=== PATIENT | female | born 1945 | race Caucasian/White ===

== ENCOUNTER 2024-08-06 09:14 | Inpatient (IN) ==
--- NOTE | 2024-08-06 09:22 | EKG ---
Test Reason : chest pain Blood Pressure : */* mmHG Vent. Rate : 72 BPM Atrial Rate : * BPM P-R Int : * ms QRS Dur : 74 ms QT Int : 362 ms P-R-T Axes : * -3 26 degrees QTc Int : 396 ms some sinus rhythm/some junctional - occ pacs Nonspecific ST and T wave abnormality Abnormal ECG No previous ECGs available Confirmed by Mook Gary MD ([id number]) on 08/06/2024 1:09:55 PM Referred By: Confirmed By: Mook Gary MD
[2024-08-06 09:26] LABS: ABG BASE EXCESS 0.8 mmol/L (-2.0-2.0); ABG HCO3 26.0 mmol/L (22-26); ABG OXYGEN SATURATION 88.0 % (90-100); ABG PCO2 43.0 mmHg (35.0-45.0); ABG PH 7.390 (7.35-7.45); ABG PO2 56.0 mmHg (80.0-100.0)
[2024-08-06 09:27] LABS: ABG ALLEN TEST POS
--- NOTE | 2024-08-06 09:34 | DR.CP ---
HPI Time Seen Time Seen by Provider: 08/06/24 09:26 HPI Comment HPI Comment: History as below. Complaint Chief Complaint Doctor Comments: Patient is 7oyr old female in ER with chest pain, SOB and fever times 3 days and is getting worse. Patient said pain is in right chest radiating to the back and right arm. Patient said symptoms are worse today. COVID-19 Coronavirus risk:travel/contact w/high risk person: No Has patient experienced Coronavirus symptoms: Yes Coronavirus symptoms experienced: Fever and Shortness of Breath Reviewed Nurses Notes Review: Yes PMH Travel Risk Coronavirus risk:travel/contact w/high risk person: No Has patient experienced Coronavirus symptoms: Yes Coronavirus symptoms experienced: Fever and Shortness of Breath ROS Review of Systems Constitutional: See HPI and Fever Eyes: No Symptoms Reported and See HPI ENTM: See HPI and Nose Congestion; negative Nose Discharge Respiratoy: See HPI, Moist Cough and Short of Breath; negative Wheezing Cardiovascular: See HPI and Chest Pain Gastrointestinal/Abdominal: No Symptoms Reported; negative Abdominal Pain, Diarrhea or Vomiting Genitourinary: No Symptoms Reported; negative Dysuria Neurological: No Symptoms Reported; negative Headache or Dizziness Musculoskeletal: See HPI, Joint Pain and Muscle Pain Integumentary: No Symptoms Reported and See HPI; negative Rash Hematologic/Lymphatic: No Symptoms Reported, See HPI and Easy Bruising Endocrine: No Symptoms Reported and See HPI Psychiatric: No Symptoms Reported and See HPI All Other Systems: Reviewed and Negative PE Vitals Vitals: Vital Signs Temperature 99.1 F Pulse Rate 60 Pulse Rate 69 Pulse Rate 74 Pulse Rate 85 Pulse Rate 72 Pulse Rate 92 Pulse Rate 64 Pulse Rate 61 Pulse Rate 89 Pulse Rate 95 Pulse Rate 82 Pulse Rate 65 Pulse Rate 62 Pulse Rate 65 Pulse Rate 67 Pulse Rate 82 Pulse Rate 77 Respiratory Rate 40 Respiratory Rate 40 Respiratory Rate 41 Respiratory Rate 37 Respiratory Rate 45 Respiratory Rate 42 Respiratory Rate 40 Respiratory Rate 35 Respiratory Rate 30 Respiratory Rate 45 Respiratory Rate 41 Respiratory Rate 33 Respiratory Rate 43 Respiratory Rate 43 Respiratory Rate 36 Blood Pressure 121/57 Blood Pressure 117/56 Blood Pressure 137/60 Blood Pressure 136/60 Blood Pressure 119/56 Blood Pressure 119/56 Blood Pressure 119/56 Blood Pressure 156/119 Blood Pressure 127/67 Blood Pressure 124/59 O2 Sat by Pulse Oximetry 100 O2 Sat by Pulse Oximetry 98 O2 Sat by Pulse Oximetry 94 O2 Sat by Pulse Oximetry 94 O2 Sat by Pulse Oximetry 94 O2 Sat by Pulse Oximetry 86 O2 Sat by Pulse Oximetry 96 O2 Sat by Pulse Oximetry 95 O2 Sat by Pulse Oximetry 95 O2 Sat by Pulse Oximetry 94 O2 Sat by Pulse Oximetry 95 O2 Sat by Pulse Oximetry 97 O2 Sat by Pulse Oximetry 97 O2 Sat by Pulse Oximetry 96 O2 Sat by Pulse Oximetry 97 O2 Sat by Pulse Oximetry 86 O2 Sat by Pulse Oximetry 89 General Limitations: No Limitations General Appearance: In Distress Head Head Exam: Normal Inspection Eyes Eye exam: Normal Appearance; negative Scleral Icterus or Conjunctival Injection ENT ENT Exam: Normal Exam, Normal Oropharynx, Normal External Ear Exam and TM's Normal Bilaterally Chest Chest Inspection: Normal Inspection and Symmetric Chest Wall Rise; negative Tenderness Respiratory Respiratory Exam: Normal Lung Sounds Bilat; negative Accessory Muscle Use, Chest Wall Tenderness or Respiratory Distress Respiratory Exam: Bilateral: Rhonchi Cardiovascular Cardiovascular Exam: Regular Rate, Normal Rhythm and Normal Heart Sounds; negative Systolic Murmur or Diastolic Murmur Abdominal Exam Abdominal Exam: Normal Inspection, Normal Bowel Sounds and Soft; negative Tenderness Extremities Extremities Exam: Tenderness (right shoulder tenderness.) and Normal Capillary Refill Back Back Exam: Normal Inspection; negative (R) CVA Tenderness or (L) CVA Tenderness Neurologic Neurological Exam: Alert and Oriented X3; negative Motor Sensory Deficit Psychiatric Psychiatric Exam: Normal Affect and Normal Mood Skin Skin Exam: Warm and Intact COURSE Treatment Treatment: SEE ORDERS DONE WHILE PATIENT PT WAS IN ER. LABS, X-RAY AND CT DISCUSSED. PATIENT ADMITTED TO HOSPITAL FOR FURTHER MANAGEMENT. Consultation Consultation Comments: Discussed patient with Dr. Burgos. He will admit patient. Education/Counseling Education/Counseling: Patient Educated On: Treatment and Diagnosis ROR Labs Reviewed Laboratory Results Reviewed?: Yes 08/07/24 04:41 08/07/24 04:41 Laboratory: WBC 15.0 X10^3/uL (3.6-10.0) H 08/06/24 09:26 RBC 3.87 X10^6/uL (3.5-5.4) 08/06/24 09:26 Hgb 10.9 g/dL (12.0-16.0) L 08/06/24 09:26 Hct 33.1 % (36.0-47.0) L 08/06/24 09:26 MCV 85.4 fL (80.0-100.0) 08/06/24 09:26 MCH 28.1 pg (27.0-34.0) 08/06/24 09: MCHC 32.9 g/dL (33.0-35.0) L 08/06/24 09: RDW 13.8 % (11.6-16.5) 08/06/24 09: Plt Count 185 X10^3/uL (150.0-450.0) 08/06/24 09: MPV 7.8 fL (7.4-11.0) 08/06/24 09: Neut % (Auto) 78.5 % (42.0-75.0) H 08/06/24 09: Lymph % (Auto) 10.5 % (21.0-51.0) L 08/06/24 09: [place] % (Auto) 9.9 % (0.0-13.0) 08/06/24 09: Eos % (Auto) 0.8 % (0.9-2.9) L 08/06/24 09: Baso % (Auto) 0.3 % (0.2-1.0) 08/06/24 09: Neut # (Auto) 11.8 x10^3/uL (2.2-4.8) H 08/06/24 09:26 Lymph # (Auto) 1.6 X10^3/uL (1.3-2.9) 08/06/24 09:26 [place] # (Auto) 1.5 x10^3/uL (0.3-0.8) H 08/06/24 09: Eos # (Auto) 0.1 x10^3/uL (0.0-0.2) 08/06/24 09: Baso # (Auto) 0.0 X10^3/uL (0.0-0.1) 08/06/24 09: Absolute Nucleated RBC 0.0 /100WBC 08/06/24: PT 15.7 SECONDS (11.8-14.3) 08/06/24 09: INR Target Range - 08/06/24: INR 1.24 (0.8-1.3) 08/06/24 09: APTT 28.8 SECONDS (22.9-36.5) 08/06/24 09:26 PTT Comment - 08/06/24 09:26 D-Dimer 15.04 ug/ml (0.0-0.57) H 08/06/24 09:26 Sample Site Rrad 08/06/24 09:22 ABG pH 7.390 (7.35-7.45) 08/06/24 09:22 ABG pCO2 43.0 mmHg (35.0-45.0) 08/06/24 09:22 ABG pO2 56.0 mmHg (80.0-100.0) L 08/06/24 09:22 ABG HCO3 26.0 mmol/L (22-26) 08/06/24 09:22 ABG O2 Saturation 88.0 % (90-100) L 08/06/24 09:22 ABG Base Excess 0.8 mmol/L (-2.0-2.0) 08/06/24 09:22 Darrick Test Pos 08/06/24 09:22 A-a Gradient 40.0 mmHg 08/06/24 09:22 FiO2 21.0 08/06/24 09:22 Blood Gas Comments Shelia well ms 08/06/24 09:22 Sodium 138 mmol/L (136-145) 08/06/24 09:26 Corrected Sodium 139 mmol/L (136-145) 08/06/24 09:26 Potassium 4.0 mmol/L (3.5-5.1) 08/06/24 09:26 Chloride 102 mmol/L (98-107) 08/06/24 09:26 Carbon Dioxide 26.7 mmol/L (21-32) 08/06/24 09:26 BUN 13 mg/dL (7-18) 08/06/24 09:26 Creatinine 0.78 mg/dL (0.55-1.02) 08/06/24 09:26 Est GFR (MDRD) Af Amer > 60 (>60) 08/06/24 09:26 Est GFR (MDRD) Non-Af > 60 (>60) 08/06/24 09:26 Glucose 151 mg/dL (65-99) H 08/06/24 09:26 Lactic Acid 1.9 mmol/L (0.4-2.0) 08/06/24 09:26 Calcium 9.3 mg/dL (8.5-10.1) 08/06/24 09:26 Corrected Calcium 10.2 mg/dL (8.5-10.1) H 08/06/24 09:26 Magnesium 2.0 mg/dL (2.0-2.9) 08/06/24 09:26 Total Bilirubin 0.50 mg/dL (0.2-1.0) 08/06/24 09:26 AST 26 Units/L (15-37) 08/06/24 09:26 ALT 22 Units/L (12-78) 08/06/24 09:26 Alkaline Phosphatase 52 Units/L (46-116) 08/06/24 09:26 Creatine Kinase 53 Units/L (26-192) 08/06/24 09:26 Troponin I High Sens 73.4 ng/L (4.0-60.0) H* 08/06/24 12:11 B-Natriuretic Peptide 144 pg/mL (0-79) H 08/06/24 09:26 Total Protein 9.3 g/dL (6.4-8.2) H 08/06/24 09:26 Albumin 2.9 g/dL (3.4-5.0) L 08/06/24 09:26 Globulin 6.4 g/dL (2.5-4.5) H 08/06/24 09:26 Albumin/Globulin Ratio 0.5 Ratio (1.1-2.1) L 08/06/24 09:26 Specimen Type Clean catch urine 08/06/24 10:16 Urine Color Yellow (YELLOW) 08/06/24 10:16 Urine Appearance Clear (CLEAR) 08/06/24 10:16 Urine pH 5.0 (5.0 - 8.0) 08/06/24 10:16 Ur Specific Shepherd 1.020 (1.000-1.030) 08/06/24 10:16 Urine Protein 2+ (NEGATIVE) 08/06/24 10:16 Urine Glucose (UA) Negative (NEGATIVE) 08/06/24 10:16 Urine Ketones Negative (NEGATIVE) 08/06/24 10:16 Urine Blood 5+ (NEGATIVE) 08/06/24 10:16 Urine Nitrite Negative (NEGATIVE) 08/06/24 10:16 Urine Bilirubin Negative (NEGATIVE) 08/06/24 10:16 Urine Urobilinogen 1+ (NORMAL) 08/06/24 10:16 Ur Leukocyte Esterase Negative (NEGATIVE) 08/06/24 10:16 Urine RBC 5-10 /HPF (0-3) A 08/06/24 10:16 Urine WBC 0-2 /HPF (0-5) 08/06/24 10:16 Ur Squamous Epith Cells Rare /HPF (NEGATIVE) 08/06/24 10:16 Amorphous Sediment 1+ /HPF (NEGATIVE) 08/06/24 10:16 Urine Bacteria Negative /HPF (NEGATIVE) 08/06/24 10:16 Granular Casts Rare /LPF (NEGATIVE) 08/06/24 10:16 Urine Mucus Few /HPF (NEGATIVE) 08/06/24 10:16 Ur Culture Indicated? No/not indicated 08/06/24 10:16 XRAY XRAY Interpreted by: Radiologist (Report noted.) and Self Opioid Opioid Risk Tool Age (Velasquez box if 16-45): No History of Preadolescent Sexual Abuse: No Total: 0 Total Score Risk Category: Low Risk Copyright: Price WONG predicting aberrant behaviors Discharge Plan Diagnosis Discharge Problem: Hypoxia, Pleural effusion, right, New onset a-fib, Elevated troponin Acute pulmonary embolus Qualifiers: Pulmonary embolism type: other Acute cor pulmonale presence: unspecified Q ualified Code(s): I26.99 - Other pulmonary embolism without acute cor pulmonale Pneumonia Qualifiers: Pneumonia type: due to unspecified organism Laterality: right Lung location: u nspecified part of lung Qualified Code(s): J18.9 - Pneumonia, unspecified organism Discharge Plan Patient Disposition: ADMITTED INPATIENT Condition: Stable
[2024-08-06 09:54] LABS: MEAN PLATELET VOLUME 7.8 fL (7.4-11.0); RED CELL DISTRIBUTION WIDTH 13.8 % (11.6-16.5)
[2024-08-06 10:03] LABS: INR 1.24 (0.8-1.3)
[2024-08-06 10:12] LABS: COR CA(FOR HYPOALB) 10.2 mg/dL (8.5-10.1); COR NA(FOR HYPERGLY) 139 mmol/L (136-145); CREATININE 0.78 mg/dL (0.55-1.02); eGFR NON BLACK RACES > 60 (>60)
[2024-08-06] MEDS: ZOSYN VIAL 3.375 GRAMS 3.375 G in NS 100 ML IV 100 ML IV ONE (10:39)
[2024-08-06 10:48] LABS: BLOOD/HEMOGLOBIN,URINE 5+ (NEGATIVE); LEUKOCYTE ESTERASE ,URINE NEGATIVE (NEGATIVE); NITRITES,URINE NEGATIVE (NEGATIVE)
[2024-08-06 10:49] LABS: APPEARANCE,URINE CLEAR (CLEAR)
[2024-08-06 11:19] LABS: SQUAMOUS EPITHELIAL CELL,UR RARE /HPF (NEGATIVE)
--- NOTE | 2024-08-06 11:50 | CT ---
EXAMINATION: CTA, CHEST HISTORY: hypoxia; . COMPARISON: None. TECHNIQUE: Routine axial imaging of the chest was performed. CT angiography of the pulmonary arteries was performed with maximum intensity projection images and volume rendered images on a workstation.. The above CT scan was done with automated exposure control and the mA and kV was adjusted to obtain quality images according to patient size. FINDINGS: Lungs: There is apical scarring. There is minimal ground-glass opacity in the right apex. There are scattered patchy areas of atelectasis. Atelectasis in the right lower lobe. No acute infiltrates, suspicious pulmonary nodules, interstitial changes. 2 mm nodule in the right upper lobe. Central Airways: No obstructing endobronchial lesion Pleura: Small pleural effusion on the right. No left effusion. No pneumothorax Thoracic Aorta: Ectasia. Atherosclerotic calcification. No dissection. Main Pulmonary Trunk: Normal diameter. There is pulmonary embolus in segmental and subsegmental branches to the right middle lobe, right lower lobe, lingula and left lower lobe. No saddle embolus or evidence for right heart strain Lymph Nodes: No pathologic lymphadenopathy Heart/Pericardium: Normal heart size. No significant pericardial effusion. Coronary artery calcification in the LAD. Liver: No acute findings. Nodular liver which may represent cirrhosis. GB/Biliary: Cholecystectomy. No dilated ducts Spleen: Normal size and density Pancreas: No acute findings as visualized Adrenal Glands: No mass Kidneys no hydronephrosis. Abdominal Aorta: Tapers and enhances normally Retroperitoneum: No pathologically enlarged lymph nodes Bowel/Peritoneal Cavity: No acute findings as visualized Osseous Structures: Degenerative changes in the thoracolumbar spine. No acute findings or bony lesions. Other: None IMPRESSION: Acute pulmonary embolus in segmental and subsegmental branches to the right middle lobe, right lower lobe, lingula and left lower lobe. No CTA evidence for saddle embolus or right heart strain Small right effusion. Scattered patchy areas of atelectasis. Minimal ground-glass opacity in the right apex. Follow-up recommended. The above CT scan was done with automated exposure control and the mA and kV was adjusted to obtain quality images according to patient size THIS IS AN ELECTRONICALLY VERIFIED FINAL REPORT 08/06/2024 11:46 AM - Electronically signed by Keith Grayson MD
[2024-08-06] MEDS: ELIQUIS PO ONE (12:58)
[2024-08-06] MEDS: LASIX IVP SCH (13:49)
[2024-08-06 15:42] VITALS: BMI 27.8
[2024-08-06] MEDS ORDERED: TYLENOL 325 MG TAB PO PRN (16:18)
[2024-08-06] MEDS: XOPENEX 1.25 MG/3 ML NEBULE NEB SCH (16:52)
--- NOTE | 2024-08-06 17:02 | VAS ---
EXAM: LOWER EXT VENOUS, BILATERAL HISTORY: PULMONARY EMBOLISM; ; BSA=1.62 BSAType=OCCIDENTAL COMPARISON: None available. TECHNIQUE: Multiple farr scale and color flow Doppler images of the deep venous system were obtained of the right and left lower extremity. FINDINGS: The deep venous system of the right and left lower extremities were evaluated from the level of the common femoral vein through the popliteal vein. Normal color flow and augmentation can be observed. In addition, normal compression is seen throughout the deep venous system. IMPRESSION: Negative for DVT. THIS IS AN ELECTRONICALLY VERIFIED FINAL REPORT 08/06/2024 4:59 PM - Electronically signed by Joon Jj MD
--- NOTE | 2024-08-06 17:14 | EKG ---
Test Reason : afib, elevated troponin Blood Pressure : */* mmHG Vent. Rate : 69 BPM Atrial Rate : 69 BPM P-R Int : 132 ms QRS Dur : 84 ms QT Int : 402 ms P-R-T Axes : 54 -2 28 degrees QTc Int : 430 ms Sinus rhythm with premature atrial complexes Nonspecific T wave abnormality Abnormal ECG When compared with ECG of 06-AUG-2024 09:22, No significant change was found Confirmed by Mook Gary MD ([id number]) on 08/06/2024 7:41:51 PM Referred By: Confirmed By: Mook Gary MD
--- NOTE | 2024-08-06 19:40 | DR.CONSULT ---
CONSULT Consultation for Day of: Date: 08/06/24 Chief Complaint Chief Complaint: pleuritic cp/sob Allergies Allergies Allergy/AdvReac Type Severity Reaction Status Date / Time No Known Drug Allergies Allergy Unknown Verified 08/06/24 09:29 History of Present Illness History of Present Illness: 79 yo female- no prior dvt/pe history- denies recent travel/surgery/trauma- 10 days of pleuritic cp/sob- came to er for 10 pleuritic cp- found to have pulmonary embolism - clot in RML/RLL/LLL- was hypoxic at 88% and positive troponin- ekg read by computer as afib but upon reveiew: sinus/pacs/junctional rhythm at times- started on eliquis 10 mg- pain down from 8 to 5/10- breathing easier- CT also showed atelectasis probably secondary to poor inspiration due to pain could be pneumonia Past Medical History Past Medical History: Coronary Artery Disease, Dyslipidemia and Hypertension Past Surgical History Surgical History: Cholecystectomy and Other Family History Family Medical History: Diabetes Mellitus, Cancer, [place], Coronary Artery Disease and Hypertension Social History Does patient currently use any type of tobacco product: No Have you used tobacco products in the last 12 months: No Type of Tobacco Use: None Does any household member use tobacco: No Alcohol Use: None Drug Use: None Medications Home Medications: No Known Drug Allergies Allergy (Unknown, Verified 08/06/24 09:29) Physical Exam Vital Signs: Vital Signs Temperature 98.9 F Temperature 99.8 F Pulse Rate [Left Radial] 67 Pulse Rate [Left Radial] 64 Pulse Rate 57 Pulse Rate 57 Pulse Rate 60 Pulse Rate 60 Pulse Rate 63 Pulse Rate 65 Pulse Rate 61 Pulse Rate 60 Pulse Rate 69 Pulse Rate 74 Pulse Rate 85 Respiratory Rate 20 Respiratory Rate 19 Respiratory Rate 33 Respiratory Rate 49 Respiratory Rate 34 Respiratory Rate 41 Respiratory Rate 44 Respiratory Rate 41 Respiratory Rate 40 Respiratory Rate 40 Respiratory Rate 41 Respiratory Rate 37 Blood Pressure [Left Arm] 139/81 Blood Pressure [Left Arm] 143/79 Blood Pressure 111/63 Blood Pressure 133/60 Blood Pressure 121/57 Blood Pressure 117/56 O2 Sat by Pulse Oximetry 98 O2 Sat by Pulse Oximetry 98 O2 Sat by Pulse Oximetry 99 O2 Sat by Pulse Oximetry 100 O2 Sat by Pulse Oximetry 100 O2 Sat by Pulse Oximetry 100 O2 Sat by Pulse Oximetry 100 O2 Sat by Pulse Oximetry 100 O2 Sat by Pulse Oximetry 100 O2 Sat by Pulse Oximetry 100 O2 Sat by Pulse Oximetry 98 O2 Sat by Pulse Oximetry 94 O2 Sat by Pulse Oximetry 94 alert ox3 no sign respiratory stress clear lungs rrr no tender legs- no warmth/edema labs to note: wbc 15k hct 33 d dimer high at 15 cr 0.78 k 4 trop - dopplers negative Both legs echo: right heart function good- no focal wall motion on left Plan (1) Hypoxia: Status: Acute (2) Pneumonia: Status: Acute (3) Acute pulmonary embolus: Status: Acute Plan: eliquis 10 bid for 7 days then 5 bid- unprovoked PE thus treat for life. tylenol for pain with eliquis (4) Elevated troponin: Status: Acute Narrative Support Text: probably related to multiple defects noted on CT: RML/RLL/LLL (5) New onset a-fib: Status: Acute Narrative Support Text: not afib- tele to follow
[2024-08-06] MEDS: PULMICORT NEB TX 0.5 MG NEB SCH (20:27)
[2024-08-06] MEDS: ELIQUIS PO SCH (21:55)
[2024-08-06] MEDS: ZOSYN VIAL 3.375 GRAMS 3.375 G in NS 100 ML IV 100 ML IV SCH (21:55)
[2024-08-06] MEDS: NS 250 ML IV 25 ML IV PRN (22:00)
--- NOTE | 2024-08-07 00:11 | EKG ---
Test Reason : afib, elevated troponin Blood Pressure : */* mmHG Vent. Rate : 61 BPM Atrial Rate : * BPM P-R Int : * ms QRS Dur : 80 ms QT Int : 432 ms P-R-T Axes : * -4 37 degrees QTc Int : 434 ms sinus rhythm with pacs Low voltage QRS Abnormal ECG When compared with ECG of 06-AUG-2024 17:05, No significant change was found Confirmed by Mook Gary MD ([id number]) on 08/07/2024 7:18:26 AM Referred By: Confirmed By: Mook Gary MD
[2024-08-07 04:58] LABS: MEAN PLATELET VOLUME 7.9 fL (7.4-11.0); RED CELL DISTRIBUTION WIDTH 13.8 % (11.6-16.5)
[2024-08-07 05:00] LABS: INR 2.71 (0.8-1.3)
[2024-08-07 05:04] LABS: COR CA(FOR HYPOALB) 10.1 mg/dL (8.5-10.1); COR NA(FOR HYPERGLY) 136 mmol/L (136-145); CREATININE 0.79 mg/dL (0.55-1.02); eGFR NON BLACK RACES > 60 (>60)
--- NOTE | 2024-08-07 08:02 | RAD ---
EXAM: CHEST, 1 VIEW HISTORY: complaints of chest pain ; COMPARISON: None FINDINGS: Minimal opacity is present in the right lung base and could be pneumonia or atelectasis. The upper right lung in the left lung are clear. Cardiomegaly is present. Atherosclerotic calcifications are present in the aorta. The bones are unremarkable. EKG leads are noted. IMPRESSION: 1. Right basilar atelectasis or pneumonia 2. Cardiomegaly THIS IS AN ELECTRONICALLY VERIFIED FINAL REPORT 08/07/2024 7:58 AM - Electronically signed by Andre Mahan MD
[2024-08-07] MEDS: K-DUR TAB 20 MEQ PO ONE (08:19)
--- NOTE | 2024-08-07 09:40 | NOTE.SOAP ---
Soap Note Note for Day of Date of Exam: 08/07/24 Subjective Data Subjective Data: still with some pleuritic cp but she tolerating it ok, no sign sob Objective Data Objective Data: tele: sinus/pacs clear lungs labs: hct 33-28.9 k 3.7 last trop down to 66 Assessment Assessment: pulmonary embolism/pna Plan Plan: treat pna/high dose doac/follow
--- NOTE | 2024-08-07 10:41 | DR.H&P ---
H&P History & Physical for Day of: H&P Date: 08/07/24 Chief Complaint Chief Complaint: chest tightness, SOB History of Present Illness History of Present Illness: Ms. Cordoba is a 79-year-old female with a past medical history of CAD, hypertension, hyperlipidemia presented with chest tightness and shortness of breath. Her symptoms had been going on for over a week. She initially thought it was related to arthritis. ER workup showed elevated D-dimer and troponin. CT chest was done which showed pulmonary embolus. Lower extremity ultrasound was negative for DVT. CTA also showed opacity. She was started on Eliquis 10 mg twice daily and IV antibiotics. She is currently on 2 L oxygen. She was admitted for further management. She is feeling better this morning. She has been ambulating to the bathroom. Cardiology was consulted yesterday. She denies any recent trauma, travel or surgery. Labs/imaging reviewed: - WBC 14 hemoglobin 9.9 platelet 167 potassium 3.7 creatinine 0.79 - INR 2.71 D-dimer 15.04 troponin 66.9 - ABG 7.3 [id number] - CT chest reviewed -Echo reviewed: EF 68% Plan: Admit to [facility] with telemetry. Continue Eliquis. Wean O2 as tolerated. Follow cardio recommendations. Resume home medications. Continue IV antibiotics. Continue bronchodilators and Pulmicort. Replace electrolytes as per protocol. Ambulate as tolerated. Monitor a.m. labs and imaging. Time spent for clinical assessment, reviewing labs and imaging, physical exam, decision making and documentation greater than 45 minutes Past Medical History Past Medical History: Coronary Artery Disease, Dyslipidemia and Hypertension Past Surgical History Surgical History: Cholecystectomy and Other Family History Family Medical History: Diabetes Mellitus, Cancer, [place], Coronary Artery Disease and Hypertension Social History Does patient currently use any type of tobacco product: No Have you used tobacco products in the last 12 months: No Type of Tobacco Use: None Does any household member use tobacco: No Alcohol Use: None Drug Use: None Medications Home Medications: Home Medications Medication Instructions Recorded Confirmed Type cholecalciferol (vitamin D3) 25 25 mcg PO QDAY 3 08/06/24 History mcg (1,000 unit) capsule multivitamin (Daily Multi-Vitamin 1 tab PO QAM 3 08/06/24 History tablet) vitamin B complex (B 1 tab PO QDAY 08/25/2208/06 History Complex-Vitamin B12 tablet) Allergies Allergies Allergy/AdvReac Type Severity Reaction Status Date / Time No Known Drug Allergies Allergy Unknown Verified 08/06/24 09:29 Labs 08/07/24 04:41 08/07/24 04:41 Labs: Laboratory WBC 14.2 X10^3/uL (3.6-10.0) H 08/07/24 04:41 RBC 3.43 X10^6/uL (3.5-5.4) L 08/07/24 04:41 Hgb 9.9 g/dL (12.0-16.0) L 08/07/24 04:41 Hct 28.9 % (36.0-47.0) L 08/07/24 04:41 MCV 84.2 fL (80.0-100.0) 08/07/24 04:41 MCH 28.8 pg (27.0-34.0) 08/07/24 04:41 MCHC 34.2 g/dL (33.0-35.0) 08/07/24 04:41 RDW 13.8 % (11.6-16.5) 08/07/24 04:41 Plt Count 167 X10^3/uL (150.0-450.0) 08/07/24 04:41 MPV 7.9 fL (7.4-11.0) 08/07/24 04:41 Neut % (Auto) 65.4 % (42.0-75.0) 08/07/24 04:41 Lymph % (Auto) 18.8 % (21.0-51.0) L 08/07/24 04:41 [place] % (Auto) 14.3 % (0.0-13.0) H 08/07/24 04:41 Eos % (Auto) 0.8 % (0.9-2.9) L 08/07/24 04:41 Baso % (Auto) 0.7 % (0.2-1.0) 08/07/24 04:41 Neut # (Auto) 9.3 x10^3/uL (2.2-4.8) H 08/07/24 04:41 Lymph # (Auto) 2.7 X10^3/uL (1.3-2.9) 08/07/24 04:41 [place] # (Auto) 2.0 x10^3/uL (0.3-0.8) H 08/07/24 04:41 Eos # (Auto) 0.1 x10^3/uL (0.0-0.2) 08/07/24 04:41 Baso # (Auto) 0.1 X10^3/uL (0.0-0.1) 08/07/24 04:41 Absolute Nucleated RBC 0.1 /100WBC 08/07/24 04:41 PT 29.0 SECONDS (11.8-14.3) 08/07/24 04:41 INR Target Range - 08/07/24 04:41 INR 2.71 (0.8-1.3) H 08/07/24 04:41 APTT 41.2 SECONDS (22.9-36.5) H 08/07/24 04:41 PTT Comment - 08/07/24 04:41 D-Dimer 15.04 ug/ml (0.0-0.57) H 08/06/24 09:26 Sample Site Rrad 08/06/24 09:22 ABG pH 7.390 (7.35-7.45) 08/06/24 09:22 ABG pCO2 43.0 mmHg (35.0-45.0) 08/06/24 09:22 ABG pO2 56.0 mmHg (80.0-100.0) L 08/06/24 09:22 ABG HCO3 26.0 mmol/L (22-26) 08/06/24 09:22 ABG O2 Saturation 88.0 % (90-100) L 08/06/24 09:22 ABG Base Excess 0.8 mmol/L (-2.0-2.0) 08/06/24 09:22 Darrick Test Pos 08/06/24 09:22 A-a Gradient 40.0 mmHg 08/06/24 09:22 FiO2 21.0 08/06/24 09:22 Blood Gas Comments Shelia well ms 08/06/24 09:22 Sodium 136 mmol/L (136-145) 08/07/24 04:41 Corrected Sodium 136 mmol/L (136-145) 08/07/24 04:41 Potassium 3.7 mmol/L (3.5-5.1) 08/07/24 04:41 Chloride 102 mmol/L (98-107) 08/07/24 04:41 Carbon Dioxide 28.7 mmol/L (21-32) 08/07/24 04:41 BUN 13 mg/dL (7-18) 08/07/24 04:41 Creatinine 0.79 mg/dL (0.55-1.02) 08/07/24 04:41 Est GFR (MDRD) Af Amer > 60 (>60) 08/07/24 04:41 Est GFR (MDRD) Non-Af > 60 (>60) 08/07/24 04:41 Glucose 111 mg/dL (65-99) H 08/07/24 04:41 Lactic Acid 1.9 mmol/L (0.4-2.0) 08/06/24 09:26 Calcium 8.8 mg/dL (8.5-10.1) 08/07/24 04:41 Corrected Calcium 10.1 mg/dL (8.5-10.1) 08/07/24 04:41 Magnesium 2.0 mg/dL (2.0-2.9) 08/07/24 04:41 Total Bilirubin 0.60 mg/dL (0.2-1.0) 08/07/24 04:41 AST 18 Units/L (15-37) 08/07/24 04:41 ALT 18 Units/L (12-78) 08/07/24 04:41 Alkaline Phosphatase 46 Units/L (46-116) 08/07/24 04:41 Creatine Kinase 54 Units/L (26-192) 08/06/24 18:29 Troponin I High Sens 66.9 ng/L (4.0-60.0) H* 08/07/24 00:12 B-Natriuretic Peptide 144 pg/mL (0-79) H 08/06/24 09:26 Total Protein 8.3 g/dL (6.4-8.2) H 08/07/24 04:41 Albumin 2.4 g/dL (3.4-5.0) L 08/07/24 04:41 Globulin 5.9 g/dL (2.5-4.5) H 08/07/24 04:41 Albumin/Globulin Ratio 0.4 Ratio (1.1-2.1) L 08/07/24 04:41 Specimen Type Clean catch urine 08/06/24 10:16 Urine Color Yellow (YELLOW) 08/06/24 10:16 Urine Appearance Clear (CLEAR) 08/06/24 10:16 Urine pH 5.0 (5.0 - 8.0) 08/06/24 10:16 Ur Specific [place] 1.020 (1.000-1.030) 08/06/24 10:16 Urine Protein 2+ (NEGATIVE) 08/06/24 10:16 Urine Glucose (UA) Negative (NEGATIVE) 08/06/24 10:16 Urine Ketones Negative (NEGATIVE) 08/06/24 10:16 Urine Blood 5+ (NEGATIVE) 08/06/24 10:16 Urine Nitrite Negative (NEGATIVE) 08/06/24 10:16 Urine Bilirubin Negative (NEGATIVE) 08/06/24 10:16 Urine Urobilinogen 1+ (NORMAL) 08/06/24 10:16 Ur Leukocyte Esterase Negative (NEGATIVE) 08/06/24 10:16 Urine RBC 5-10 /HPF (0-3) A 08/06/24 10:16 Urine WBC 0-2 /HPF (0-5) 08/06/24 10:16 Ur Squamous Epith Cells Rare /HPF (NEGATIVE) 08/06/24 10:16 Amorphous Sediment 1+ /HPF (NEGATIVE) 08/06/24 10:16 Urine Bacteria Negative /HPF (NEGATIVE) 08/06/24 10:16 Granular Casts Rare /LPF (NEGATIVE) 08/06/24 10:16 Urine Mucus Few /HPF (NEGATIVE) 08/06/24 10:16 Ur Culture Indicated? No/not indicated 08/06/24 10:16 Review of Systems Constitutional: No Symptoms Reported Eyes: No Symptoms Reported ENT: No Symptoms Reported Respiratory: Shortness of Breath Cardiovascular: Chest Pain Gastrointestinal: No Symptoms Reported Genitourinary: No Symptoms Reported Musculoskeletal: No Symptoms Reported Skin: No Symptoms Reported Neurological: No Symptoms Reported Physical Exam Vital Signs: Vital Signs Temperature 98.4 F Temperature 98.6 F Pulse Rate [Left Radial] 98 Pulse Rate [Left Radial] 79 Respiratory Rate 19 Respiratory Rate 19 Blood Pressure [Left Arm] 117/63 Blood Pressure [Left Arm] 106/68 O2 Sat by Pulse Oximetry 98 O2 Sat by Pulse Oximetry 98 O2 Sat by Pulse Oximetry 96 Oriented: Normal Respiratory: Clear Throughout Cardiovascular: Normal Auscultation: Bowel Sounds: Normal Palpation: Normal Tenderness: Normal Skin: Normal Musculoskeletal: Normal Psychiatric: Normal Mood Description: Calm Affect: Normal Speech Pattern: Clear and Appropriate Assessment/Plan (1) Acute pulmonary embolus: Qualifiers: Acute cor pulmonale presence: unspecified Pulmonary embolism type: o ther Qualified Code(s): I26.99 - Other pulmonary embolism without acute cor pulmonale Status: Acute (2) Hypoxia: Status: Acute (3) Pneumonia: Qualifiers: Laterality: right Lung location: unspecified part of lung Pneumonia type: due to unspecified organism Qualified Code(s): J18.9 - Pneumonia, unspecified organism Status: Acute (4) Elevated troponin: Status: Acute (5) Osteoarthritis: Qualifiers: Osteoarthritis location: multiple joints Osteoarthritis type: primary Qualified Code(s): M15.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
--- NOTE | 2024-08-07 19:39 | EKG ---
Test Reason : Tachycardia Blood Pressure : */* mmHG Vent. Rate : 166 BPM Atrial Rate : * BPM P-R Int : * ms QRS Dur : 74 ms QT Int : 280 ms P-R-T Axes : * 45 51 degrees QTc Int : 465 ms Atrial fibrillation with rapid ventricular response Low voltage QRS Nonspecific ST and T wave abnormality Abnormal ECG When compared with ECG of 07-AUG-2024 00:09, afib is new Nonspecific T wave abnormality, worse in Inferior leads Nonspecific T wave abnormality, worse in Anterior leads Confirmed by Mook Gary MD ([id number]) on 08/08/2024 5:47:43 AM Referred By: Confirmed By: Mook Gary MD
[2024-08-07] MEDS: OMNIPAQUE 350 mg/mL 100 mL BTL 100 ML ONE (19:48)
[2024-08-07] MEDS: CONSULT PHARMACY - POTASSIUM & MAGNESIUM XX SCH ×2 (19:49)
[2024-08-07] MEDS ORDERED: LOPRESSOR INJ 5 MG AMP IVP ONE (20:24)
[2024-08-07] MEDS: LOPRESSOR TAB 25 MG PO SCH (21:35)
[2024-08-07] MEDS: ZOCOR TAB 20 MG PO SCH (21:36)
[2024-08-08 05:49] LABS: MEAN PLATELET VOLUME 7.9 fL (7.4-11.0); RED CELL DISTRIBUTION WIDTH 13.9 % (11.6-16.5)
[2024-08-08 05:59] LABS: COR CA(FOR HYPOALB) 10.4 mg/dL (8.5-10.1); COR NA(FOR HYPERGLY) 139 mmol/L (136-145); CREATININE 0.76 mg/dL (0.55-1.02); eGFR NON BLACK RACES > 60 (>60)
[2024-08-08] MEDS: CARDIZEM TAB 30 MG PLAIN PO SCH (07:24)
--- NOTE | 2024-08-08 10:03 | PCM.PROG ---
Progress Note Progress Note for Day of Date of Exam: 08/08/24 Subjective Subjective: Patient seen at bedside, no acute events overnight. She was noted to be tachycardic yesterday evening, heart rate in the 120-130. EKG showed A-fib with RVR. She was given IV metoprolol 5 mg and started on metoprolol tartrate 12.5 twice daily. She denies having any history of A-fib. She denies having any symptoms at the time. She is currently admitted for PE and pneumonia. She also had a low-grade temp yesterday. She remains on IV Zosyn. Dr. Gary started patient on diltiazem due to her previous history of bradycardia with metoprolol. She is currently on 2 L nasal cannula. Labs/imaging reviewed: - WBC 16.6 hemoglobin 9.6 platelet 168 potassium 4.1 creatinine 0.76 - Blood cultures no growth - Echo reviewed Plan: Wean O2 as tolerated. Continue Eliquis. Follow cardiology recommendations. Continue diltiazem. Monitor heart rate. Repeat chest x-ray. Continue IV Lasix. Continue antibiotics and bronchodilators. Replace electrolytes as per protocol. Physical therapy as tolerated. Monitor a.m. labs and imaging. Time spent for clinical assessment, reviewing labs and imaging, physical exam, decision making and documentation greater than 45 minutes. Past Medical Family Social History Allergies: Allergies No Known Drug Allergies Allergy (Unknown, Verified 08/06/24 09:29) Onset Date: 04/01/2020 Vital Signs and I&O's Vital Signs: Vital Signs Temperature 98.5 F Temperature 99.5 F Pulse Rate [Left Radial] 63 Pulse Rate [Left Radial] 56 Pulse Rate 66 Respiratory Rate 16 Respiratory Rate 18 Blood Pressure [Left Arm] 129/62 Blood Pressure [Left Arm] 145/61 O2 Sat by Pulse Oximetry 96 O2 Sat by Pulse Oximetry 97 O2 Sat by Pulse Oximetry 97 Intake and Output: Intake & Output 08/05/24 08/06/24 08/07/24 08/08/24 23:59 23:59 23:59 23:59 Intake Total 1122 303 / 303 Balance 1122 303 / 303 Physical Exam Oriented: Normal Respiratory: Normal Cardiovascular: Normal Auscultation: Bowel Sounds: Normal Palpation: Normal Tenderness: Normal Skin: Normal Musculoskeletal: Normal Psychiatric: Normal Mood Description: Calm Affect: Normal Speech Pattern: Clear and Appropriate Laboratory and Diagnostics 08/08/24 05:25 08/08/24 05:25 Labs: Laboratory WBC 16.6 X10^3/uL (3.6-10.0) H 08/08/24 05:25 RBC 3.31 X10^6/uL (3.5-5.4) L 08/08/24 05:25 Hgb 9.6 g/dL (12.0-16.0) L 08/08/24 05:25 Hct 27.8 % (36.0-47.0) L 08/08/24 05:25 MCV 84.2 fL (80.0-100.0) 08/08/24 05:25 MCH 29.0 pg (27.0-34.0) 08/08/24 05:25 MCHC 34.4 g/dL (33.0-35.0) 08/08/24 05:25 RDW 13.9 % (11.6-16.5) 08/08/24 05:25 Plt Count 168 X10^3/uL (150.0-450.0) 08/08/24 05:25 MPV 7.9 fL (7.4-11.0) 08/08/24 05:25 Neut % (Auto) 74.6 % (42.0-75.0) 08/08/24 05:25 Lymph % (Auto) 11.5 % (21.0-51.0) L 08/08/24 05:25 [place] % (Auto) 13.3 % (0.0-13.0) H 08/08/24 05:25 Eos % (Auto) 0.3 % (0.9-2.9) L 08/08/24 05:25 Baso % (Auto) 0.3 % (0.2-1.0) 08/08/24 05:25 Neut # (Auto) 12.4 x10^3/uL (2.2-4.8) H 08/08/24 05:25 Lymph # (Auto) 1.9 X10^3/uL (1.3-2.9) 08/08/24 05:25 [place] # (Auto) 2.2 x10^3/uL (0.3-0.8) H 08/08/24 05:25 Eos # (Auto) 0.1 x10^3/uL (0.0-0.2) 08/08/24 05:25 Baso # (Auto) 0.1 X10^3/uL (0.0-0.1) 08/08/24 05:25 Absolute Nucleated RBC 0.1 /100WBC 08/08/24 05:25 PT 29.0 SECONDS (11.8-14.3) 08/07/24 04:41 INR Target Range - 08/07/24 04:41 INR 2.71 (0.8-1.3) H 08/07/24 04:41 APTT 41.2 SECONDS (22.9-36.5) H 08/07/24 04:41 PTT Comment - 08/07/24 04:41 D-Dimer 15.04 ug/ml (0.0-0.57) H 08/06/24 09:26 Sample Site Rrad 08/06/24 09:22 ABG pH 7.390 (7.35-7.45) 08/06/24 09:22 ABG pCO2 43.0 mmHg (35.0-45.0) 08/06/24 09:22 ABG pO2 56.0 mmHg (80.0-100.0) L 08/06/24 09:22 ABG HCO3 26.0 mmol/L (22-26) 08/06/24 09:22 ABG O2 Saturation 88.0 % (90-100) L 08/06/24 09:22 ABG Base Excess 0.8 mmol/L (-2.0-2.0) 08/06/24 09:22 Darrick Test Pos 08/06/24 09:22 A-a Gradient 40.0 mmHg 08/06/24 09:22 FiO2 21.0 08/06/24 09:22 Blood Gas Comments Shelia well ms 08/06/24 09:22 Sodium 138 mmol/L (136-145) 08/08/24 05:25 Corrected Sodium 139 mmol/L (136-145) 08/08/24 05:25 Potassium 4.1 mmol/L (3.5-5.1) 08/08/24 05:25 Chloride 101 mmol/L (98-107) 08/08/24 05:25 Carbon Dioxide 29.4 mmol/L (21-32) 08/08/24 05:25 BUN 14 mg/dL (7-18) 08/08/24 05:25 Creatinine 0.76 mg/dL (0.55-1.02) 08/08/24 05:25 Est GFR (MDRD) Af Amer > 60 (>60) 08/08/24 05:25 Est GFR (MDRD) Non-Af > 60 (>60) 08/08/24 05:25 Glucose 124 mg/dL (65-99) H 08/08/24 05:25 Lactic Acid 1.9 mmol/L (0.4-2.0) 08/06/24 09:26 Calcium 9.0 mg/dL (8.5-10.1) 08/08/24 05:25 Corrected Calcium 10.4 mg/dL (8.5-10.1) H 08/08/24 05:25 Magnesium 2.0 mg/dL (2.0-2.9) 08/08/24 05:25 Total Bilirubin 0.40 mg/dL (0.2-1.0) 08/08/24 05:25 AST 20 Units/L (15-37) 08/08/24 05:25 ALT 20 Units/L (12-78) 08/08/24 05:25 Alkaline Phosphatase 45 Units/L (46-116) L 08/08/24 05:25 Creatine Kinase 76 Units/L (26-192) 08/07/24 17:37 Troponin I High Sens 66.9 ng/L (4.0-60.0) H* 08/07/24 00:12 B-Natriuretic Peptide 144 pg/mL (0-79) H 08/06/24 09:26 Total Protein 8.2 g/dL (6.4-8.2) 08/08/24 05:25 Albumin 2.2 g/dL (3.4-5.0) L 08/08/24 05:25 Globulin 6.0 g/dL (2.5-4.5) H 08/08/24 05:25 Albumin/Globulin Ratio 0.4 Ratio (1.1-2.1) L 08/08/24 05:25 Specimen Type Clean catch urine 08/06/24 10:16 Urine Color Yellow (YELLOW) 08/06/24 10:16 Urine Appearance Clear (CLEAR) 08/06/24 10:16 Urine pH 5.0 (5.0 - 8.0) 08/06/24 10:16 Ur Specific [place] 1.020 (1.000-1.030) 08/06/24 10:16 Urine Protein 2+ (NEGATIVE) 08/06/24 10:16 Urine Glucose (UA) Negative (NEGATIVE) 08/06/24 10:16 Urine Ketones Negative (NEGATIVE) 08/06/24 10:16 Urine Blood 5+ (NEGATIVE) 08/06/24 10:16 Urine Nitrite Negative (NEGATIVE) 08/06/24 10:16 Urine Bilirubin Negative (NEGATIVE) 08/06/24 10:16 Urine Urobilinogen 1+ (NORMAL) 08/06/24 10:16 Ur Leukocyte Esterase Negative (NEGATIVE) 08/06/24 10:16 Urine RBC 5-10 /HPF (0-3) A 08/06/24 10:16 Urine WBC 0-2 /HPF (0-5) 08/06/24 10:16 Ur Squamous Epith Cells Rare /HPF (NEGATIVE) 08/06/24 10:16 Amorphous Sediment 1+ /HPF (NEGATIVE) 08/06/24 10:16 Urine Bacteria Negative /HPF (NEGATIVE) 08/06/24 10:16 Granular Casts Rare /LPF (NEGATIVE) 08/06/24 10:16 Urine Mucus Few /HPF (NEGATIVE) 08/06/24 10:16 Ur Culture Indicated? No/not indicated 08/06/24 10:16 Resp Viral Panel (PCR) See scanned report 08/06/24 13:39 Plan (1) Acute pulmonary embolus: Status: Acute Qualifiers: Acute cor pulmonale presence: unspecified Pulmonary embolism type: o ther Qualified Code(s): I26.99 - Other pulmonary embolism without acute cor pulmonale (2) Atrial fibrillation with RVR: Status: Acute (3) Hypoxia: Status: Acute (4) Pneumonia: Status: Acute Qualifiers: Laterality: right Lung location: unspecified part of lung Pneumonia type: due to unspecified organism Qualified Code(s): J18.9 - Pneumonia, unspecified organism (5) Elevated troponin: Status: Acute (6) Osteoarthritis: Status: Chronic Qualifiers: Osteoarthritis location: multiple joints Osteoarthritis type: primary Qualified Code(s): M15.0 - Primary generalized (osteo)arthritis (7) Hypertension: Status: Chronic Qualifiers: Hypertension type: primary hypertension Qualified Code(s): I10 - Essential (primary) hypertension
--- NOTE | 2024-08-08 12:54 | NOTE.SOAP ---
Soap Note Note for Day of Date of Exam: 08/08/24 Subjective Data Subjective Data: sob improving daily- cp going down too- had afib yesterday afternoon- back in sinus- BB in past caused extreme evelyn/pauses thus usin ccb Objective Data Objective Data: ekg: rafib yesterday- now sinus evelyn on tele clear lungs- o2 sat off oxygen: 91-96% Assessment Assessment: pulm embolism- tachy/evelyn-short run of afib yeserday Plan Plan: on doac for PE now afib- no bb as bad hx of evelyn- will try ccb and watch closely for bradycardia
[2024-08-08] MEDS: BROVANA IN SCH (21:25)
[2024-08-09 05:40] LABS: MEAN PLATELET VOLUME 7.9 fL (7.4-11.0); RED CELL DISTRIBUTION WIDTH 13.8 % (11.6-16.5)
[2024-08-09 05:52] LABS: COR CA(FOR HYPOALB) 10.7 mg/dL (8.5-10.1); CREATININE 0.69 mg/dL (0.55-1.02); eGFR NON BLACK RACES > 60 (>60)
[2024-08-09] MEDS ORDERED: CONSULT PHARMACY - POTASSIUM & MAGNESIUM XX SCH (07:00)
--- NOTE | 2024-08-09 07:32 | RAD ---
EXAM: AP chest HISTORY: SOB pneumonia COMPARISON: 08/06/2024, CTA chest 08/06/2024 FINDINGS: Persistent airspace process right base with small pleural effusion obscuring the costophrenic angle. Heart size normal. No pneumothorax or other significant process demonstrated. The extreme pulmonary apices are not included on this image. IMPRESSION: Persistent pleural-parenchymal findings at the right base, nonspecific but compatible with pulmonary infarction and small pleural effusion as described on recent CTA exam. THIS IS AN ELECTRONICALLY VERIFIED FINAL REPORT 08/09/2024 7:28 AM - Electronically signed by Blanco Bingham MD
[2024-08-09] MEDS: K-DUR TAB 20 MEQ PO ONE (08:25)
[2024-08-09 12:39] VITALS: BP 113/56; PULSE 73; RESP 20; TEMP 98.3; O2SAT 98
[2024-08-13] MEDS ORDERED: ELIQUIS PO SCH (21:00)
--- NOTE | 2024-08-14 16:35 | W.DIS.FURT ---
Summary of Discharge Discharge Summary of Date Date of Exam: 08/09/24 Admission Date Date of Admission: 08/06/24 Admission Diagnosis Patient Problems (Updated 08/08/24 @ 10:03 by Bre Turner MD) Elevated troponin (Acute) R79.89 New onset a-fib (Acute) I48.91 Pleural effusion, right (Acute) J90 Hypoxia (Acute) R09.02 Pneumonia (Acute) J18.9 Acute pulmonary embolus (Acute) I26.99 Hospital Course: Patient is a 89-year-old female admitted for pulmonary embolism and pneumonia. She also had A-fib with RVR. Cardiology- Dr. Lozada was consulted and medication management resolved her arrhythmia. She received also IV Zosyn for her pneumonia and Eliquis for her pulmonary embolism. Patient responded well to treatments. Symptoms significantly improved. Patient back to baseline. She will continue diltiazem and Eliquis, and Cefdinir at home. Patient was discharged in stable condition. She will will follow-up outpatient with her PCP and cardiology in 1 week. Labs: Laboratory Last Values WBC 14.2 X10^3/uL (3.6-10.0) H 08/09/24 05:20 RBC 3.38 X10^6/uL (3.5-5.4) L 08/09/24 05:20 Hgb 9.7 g/dL (12.0-16.0) L 08/09/24 05:20 Hct 28.5 % (36.0-47.0) L 08/09/24 05:20 MCV 84.2 fL (80.0-100.0) 08/09/24 05:20 MCH 28.8 pg (27.0-34.0) 08/09/24 05:20 MCHC 34.2 g/dL (33.0-35.0) 08/09/24 05:20 RDW 13.8 % (11.6-16.5) 08/09/24 05:20 Plt Count 200 X10^3/uL (150.0-450.0) 08/09/24 05:20 MPV 7.9 fL (7.4-11.0) 08/09/24 05:20 Neut % (Auto) 72.2 % (42.0-75.0) 08/09/24 05:20 Lymph % (Auto) 14.4 % (21.0-51.0) L 08/09/24 05:20 [place] % (Auto) 12.0 % (0.0-13.0) 08/09/24 05:20 Eos % (Auto) 0.9 % (0.9-2.9) 08/09/24 05:20 Baso % (Auto) 0.5 % (0.2-1.0) 08/09/24 05:20 Neut # (Auto) 10.3 x10^3/uL (2.2-4.8) H 08/09/24 05:20 Lymph # (Auto) 2.0 X10^3/uL (1.3-2.9) 08/09/24 05:20 [place] # (Auto) 1.7 x10^3/uL (0.3-0.8) H 08/09/24 05:20 Eos # (Auto) 0.1 x10^3/uL (0.0-0.2) 08/09/24 05:20 Baso # (Auto) 0.1 X10^3/uL (0.0-0.1) 08/09/24 05:20 Absolute Nucleated RBC 0.0 /100WBC 08/09/24 05:20 PT 29.0 SECONDS (11.8-14.3) 08/07/24 04:41 INR Target Range - 08/07/24 04:41 INR 2.71 (0.8-1.3) H 08/07/24 04:41 APTT 41.2 SECONDS (22.9-36.5) H 08/07/24 04:41 PTT Comment - 08/07/24 04:41 D-Dimer 15.04 ug/ml (0.0-0.57) H 08/06/24 09:26 Sample Site Rrad 08/06/24 09:22 ABG pH 7.390 (7.35-7.45) 08/06/24 09:22 ABG pCO2 43.0 mmHg (35.0-45.0) 08/06/24 09:22 ABG pO2 56.0 mmHg (80.0-100.0) L 08/06/24 09:22 ABG HCO3 26.0 mmol/L (22-26) 08/06/24 09:22 ABG O2 Saturation 88.0 % (90-100) L 08/06/24 09:22 ABG Base Excess 0.8 mmol/L (-2.0-2.0) 08/06/24 09:22 Darrick Test Pos 08/06/24 09:22 A-a Gradient 40.0 mmHg 08/06/24 09:22 FiO2 21.0 08/06/24 09:22 Blood Gas Comments Shelia well ms 08/06/24 09:22 Sodium 138 mmol/L (136-145) 08/09/24 05:20 Corrected Sodium TNP 08/09/24 05:20 Potassium 3.7 mmol/L (3.5-5.1) 08/09/24 05:20 Chloride 101 mmol/L (98-107) 08/09/24 05:20 Carbon Dioxide 30.2 mmol/L (21-32) 08/09/24 05:20 BUN 11 mg/dL (7-18) 08/09/24 05:20 Creatinine 0.69 mg/dL (0.55-1.02) 08/09/24 05:20 Est GFR (MDRD) Af Amer > 60 (>60) 08/09/24 05:20 Est GFR (MDRD) Non-Af > 60 (>60) 08/09/24 05:20 Glucose 102 mg/dL (65-99) H 08/09/24 05:20 Lactic Acid 1.9 mmol/L (0.4-2.0) 08/06/24 09:26 Calcium 9.2 mg/dL (8.5-10.1) 08/09/24 05:20 Corrected Calcium 10.7 mg/dL (8.5-10.1) H 08/09/24 05:20 Magnesium 2.0 mg/dL (2.0-2.9) 08/09/24 05:20 Total Bilirubin 0.40 mg/dL (0.2-1.0) 08/09/24 05:20 AST 24 Units/L (15-37) 08/09/24 05:20 ALT 23 Units/L (12-78) 08/09/24 05:20 Alkaline Phosphatase 51 Units/L (46-116) 08/09/24 05:20 Creatine Kinase 76 Units/L (26-192) 08/07/24 17:37 Troponin I High Sens 66.9 ng/L (4.0-60.0) H* 08/07/24 00:12 B-Natriuretic Peptide 144 pg/mL (0-79) H 08/06/24 09:26 Total Protein 8.5 g/dL (6.4-8.2) H 08/09/24 05:20 Albumin 2.1 g/dL (3.4-5.0) L 08/09/24 05:20 Globulin 6.4 g/dL (2.5-4.5) H 08/09/24 05:20 Albumin/Globulin Ratio 0.3 Ratio (1.1-2.1) L 08/09/24 05:20 Specimen Type Clean catch urine 08/06/24 10:16 Urine Color Yellow (YELLOW) 08/06/24 10:16 Urine Appearance Clear (CLEAR) 08/06/24 10:16 Urine pH 5.0 (5.0 - 8.0) 08/06/24 10:16 Ur Specific [place] 1.020 (1.000-1.030) 08/06/24 10:16 Urine Protein 2+ (NEGATIVE) 08/06/24 10:16 Urine Glucose (UA) Negative (NEGATIVE) 08/06/24 10:16 Urine Ketones Negative (NEGATIVE) 08/06/24 10:16 Urine Blood 5+ (NEGATIVE) 08/06/24 10:16 Urine Nitrite Negative (NEGATIVE) 08/06/24 10:16 Urine Bilirubin Negative (NEGATIVE) 08/06/24 10:16 Urine Urobilinogen 1+ (NORMAL) 08/06/24 10:16 Ur Leukocyte Esterase Negative (NEGATIVE) 08/06/24 10:16 Urine RBC 5-10 /HPF (0-3) A 08/06/24 10:16 Urine WBC 0-2 /HPF (0-5) 08/06/24 10:16 Ur Squamous Epith Cells Rare /HPF (NEGATIVE) 08/06/24 10:16 Amorphous Sediment 1+ /HPF (NEGATIVE) 08/06/24 10:16 Urine Bacteria Negative /HPF (NEGATIVE) 08/06/24 10:16 Granular Casts Rare /LPF (NEGATIVE) 08/06/24 10:16 Urine Mucus Few /HPF (NEGATIVE) 08/06/24 10:16 Ur Culture Indicated? No/not indicated 08/06/24 10:16 Resp Viral Panel (PCR) See scanned report 08/06/24 13:39 Reason For Visit: PULMONARY EMBOLISM, PNEUMONIA, HYPOXIA, Discharge Date Discharge Date: 08/09/24 Discharge Diagnosis All Active Problems (Updated 08/08/24 @ 10:03 by Bre Turner MD) Atrial fibrillation with RVR (Acute) Elevated troponin (Acute) New onset a-fib (Acute) Pleural effusion, right (Acute) Hypoxia (Acute) Pneumonia (Acute) Acute pulmonary embolus (Acute) Personal history of skin cancer (Acute) Seasonal allergic rhinitis (Acute) Screening mammography declined (Acute) Osteoarthritis (Chronic) SSS (sick sinus syndrome) (Acute) SOB (shortness of breath) (Acute) Postmenopausal (Acute) Vaccine counseling (Acute) Sinus arrhythmia (Acute) Second degree atrioventricular block (Acute) Abnormal EKG (Acute) Hypertension (Chronic) Plan of Treatment: Continue with present treatment and follow up plan. Pt is to keep follow up appointment as instructed and take medications as ordered. Discharge Medications Discharge Medications: No Known Drug Allergies Allergy (Unknown, Verified 08/06/24 09:29) New Prescriptions apixaban 5 mg tablet (Eliquis) 10 mg (2 x 5 mg) PO BID #14 tabs 08/09/24 [Rx] cefdinir 300 mg capsule 300 mg PO BID #14 caps 08/09/24 [Rx] diltiazem HCl 30 mg tablet (Cardizem) 30 mg PO TID #60 tabs 08/09/24 [Rx] Discharge Plan Discharge Plan Hospital Course: Patient is a 89-year-old female admitted for pulmonary embolism and pneumonia. She also had A-fib with RVR. Cardiology- Dr. Lozada was consulted and medication management resolved her arrhythmia. She received also IV Zosyn for her pneumonia and Eliquis for her pulmonary embolism. Patient responded well to treatments. Symptoms significantly improved. Patient back to baseline. She will continue diltiazem and Eliquis, and Cefdinir at home. Patient was discharged in stable condition. She will will follow-up outpatient with her PCP and cardiology in 1 week. Patient Disposition: HOME, SELF-CARE Condition: Stable Health Concerns: Post Hospitalization: new medications and changes needed to prevent readmission or further decline. Pt educated and given instructions on all concerns. Care Plan Goals: Problem: Pain/Alteration in Comfort Goal: Improve/ Resolve Pain; Achieve Pain Tolerance Instructions: Take pain medications as prescribed. Contact your primary care provider if your pain is unrelieved or worsens. Follow up with primary care provider as directed. Plan of Treatment: Continue with present treatment and follow up plan. Pt is to keep follow up ap pointment as instructed and take medications as ordered. Prescriptions: New Eliquis 5 mg Tablet 10 mg PO BID Qty: 14 0RF Rx Instructions: after 7 more days bid at 10 Patient will take 5mg bid daily after that cefdinir 300 mg Capsule 300 mg PO BID Qty: 14 0RF diltiazem HCl [Cardizem] 30 mg Tablet 30 mg PO TID Qty: 60 0RF No Action multivitamin [Daily Multi-Vitamin] Tablet 1 tab PO QAM vitamin B complex [B Complex-Vitamin B12] Tablet 1 tab PO QDAY cholecalciferol (vitamin D3) 25 mcg (1,000 unit) capsule 25 mcg PO QDAY lisinopril 10 mg tablet 10 mg PO BID MDD 1 Qty: 180 1RF simvastatin 20 mg tablet 20 mg PO QHS MDD 1 Qty: 90 1RF levocetirizine 5 mg tablet 5 mg PO QDAY MDD 1 PRN (Reason: allergy symptoms) 30 Days Qty: 30 2RF Eliquis 5 mg tablet 5 mg PO BID Qty: 180 3RF Follow ups/Referrals Follow ups/Referrals: BARAK LOZADA MD [STAFF PHYSICIAN, Cardiology] - 08/13/24 9:40 am THERESE MARTINEZ FNP [Primary Care Provider, MEDICAL] - 08/20/24 2:00 pm Instructions Instructions: Sinus Tachycardia, Atrial Fibrillation, [id number] Stand Alone Forms: Excuse From Work or School, Find Help Web Site, Post Hospital Follow Up Care Print Language: SRI LANKAN
== END 2024-08-09 12:25 | disposition home or self-care (01) | DRG 175 ==
LOC: ER 09:14 → MED/SURG 12:59
PROVIDERS: ADMIT Family Medicine; ATTEND Family Medicine
DX: E78.5 Hyperlipidemia, unspecified; R73.09 Other abnormal glucose; R00.0 Tachycardia, unspecified; R79.1 Abnormal coagulation profile; Z59.86 Financial insecurity; I48.91 Unspecified atrial fibrillation; I10 Essential (primary) hypertension; J90 Pleural effusion, not elsewhere classified; J18.8 Other pneumonia, unspecified organism; R79.89 Other specified abnormal findings of blood chemistry; R94.31 Abnormal electrocardiogram [ECG] [EKG]; R09.02 Hypoxemia; I26.99 Other pulmonary embolism without acute cor pulmonale; I25.10 Atherosclerotic heart disease of native coronary artery without angina pectoris; R07.89 Other chest pain; R06.02 Shortness of breath; M15.0 Primary generalized (osteo)arthritis